=== PATIENT | male | born 1985 | race Caucasian/White ===

== ENCOUNTER 2020-12-18 21:49 | Emergency (ER) | payer BC, OTHER ==
[~2020-12-18] VITALS: Ht 185.4 cm; Wt 118.1 kg
[2020-12-18 21:49] VITALS: BP 159/96
[2020-12-18] MEDS ORDERED: IBUP1TAB5 PO (22:00)
== END 2020-12-19 01:10 | disposition left against medical advice (07) ==
LOC: M ED 21:49
DX: Z53.21 Procedure and treatment not carried out due to patient leaving prior to being seen by health care provider (principal)

== ENCOUNTER → 2025-05-28 | Outpatient (CLI) | payer OTHER ==
[~2025-05-28] MED LIST: IBUP1TAB5 PO
== END ==
LOC: M SLEEP HO 10:34
PROVIDERS: ATTEND Physician Assistant
DX: G47.33 Obstructive sleep apnea (adult) (pediatric) (principal)